=== PATIENT | female | born 1965 | race Caucasian/White ===

== ENCOUNTER → 2023-06-05 16:08 | Outpatient (REF) | payer BC, SELFPAY | LOC: WDC 16:08 | PROVIDERS: ATTENDING PHYSICIAN Obstetrics & Gynecology; FAMILY PHYSICIAN Family Medicine | DX: Z12.31 Encounter for screening mammogram for malignant neoplasm of breast (principal) | CPT/HCPCS: 77063; 77067 ==

== ENCOUNTER → 2023-06-23 08:39 | Outpatient (REF) | payer BC, SELFPAY | LOC: RCS 08:39 | PROVIDERS: ATTENDING PHYSICIAN Ophthalmology; FAMILY PHYSICIAN Family Medicine | DX: R73.09 Other abnormal glucose (principal); Z01.810 Encounter for preprocedural cardiovascular examination | CPT/HCPCS: 93005 ==

== ENCOUNTER → 2024-06-05 16:01 | Outpatient (REF) | payer BC, SELFPAY | LOC: WDC 16:01 | PROVIDERS: ATTENDING PHYSICIAN Obstetrics & Gynecology; FAMILY PHYSICIAN Family Medicine | DX: Z12.31 Encounter for screening mammogram for malignant neoplasm of breast (principal) | CPT/HCPCS: 77063; 77067 ==